=== PATIENT | female | born 1995 ===

== ENCOUNTER 2017-11-08 13:52 | Emergency (ER) | payer OTHER ==
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
[2017-11-08 14:53] VITALS: BP 105/69; PULSE 68; RESP 18; TEMP 98.1; O2SAT 100
== END 2017-11-08 14:44 | disposition home or self-care (01) ==
LOC: C.ER 13:52
DX: S13.4XXA Sprain of ligaments of cervical spine, initial encounter (principal); V49.40XA Driver injured in collision with unspecified motor vehicles in traffic accident, initial encounter